=== PATIENT | male | born 1990 | race Two or more races ===

== ENCOUNTER 2019-02-13 20:38 | Emergency (ER) | payer OTHER ==
[~2019-02-13] VITALS: Ht 175.3 cm; Wt 68.0 kg
[2019-02-13] MEDS ORDERED: NKM (20:46)
[2019-02-13 20:49] VITALS: BP 137/82
--- NOTE | 2019-02-13 20:53 | NUR ---
ER Nurse Note: Pt came from home c/o left side inflammation due to abscess in left nare. Inside left nare, small bump with redness and dried blood. Pt stated it was popped by significant other and notied the pain and swelling afterwards. Pt a&ox4, VSS. No difficulty breathing through nose, no shortness of breath, no difficulty swallowing. Will continue to [facility].
[2019-02-13] MEDS ORDERED: Bacitracin Oint UD TOPIC ONE (21:00)
[2019-02-13] MEDS ORDERED: Cephalexin 500mg cap ORAL ONE (21:00)
[2019-02-13] MEDS ORDERED: Bactrim-DS 1 tab ORAL ONE (21:00)
[2019-02-13] MEDS ORDERED: HYDROcodone/Acetamin 5/325 tab ORAL ONE (21:00)
[2019-02-13] MEDS ORDERED: Ketorolac 60mg Inj IM ONE (21:00)
--- NOTE | 2019-02-13 21:04 | Emergency Room Report ---
History of Present Illness General Chief Complaint: Skin Rash/Abscess Source: Patient Present Illness HPI Patient presents with complaints of swelling and irritation to the left upper facial area Reports that several days ago he had noticed some mild erythema just below the nasal area Over the past 2-3 days has worsened and now he feels is more swelling in the left upper cheek Denies any chest pain or shortness of breath he had developed a migraine headache with this he does report that he gets headache in the past Denies any neck pain or photophobia denies any fevers Allergies: Coded Allergies: No Known Allergies (Unverified , 02/13/19) Patient History Past Medical History: see triage record Pertinent Family History: none Reviewed Nursing Documentation: PMH: Agreed; PSxH: Agreed Nursing Documentation-PMH Past Medical History: No Stated History Review of Systems All Other Systems: negative except mentioned in HPI Physical Exam Vital Signs Date Time Temp Pulse Resp B/P (MAP) Pulse Ox O2 Delivery O2 Flow Rate FiO2 02/13/19 20:41 99.9 93 18 137/82 94 Room Air Sp02 EP Interpretation: reviewed, normal General Appearance: well appearing, no apparent distress Head: normocephalic, atraumatic Eyes: bilateral eye PERRL, bilateral eye EOMI Medical Decision Making Diagnostic Impression: Primary Impression: Impetigo Additional Impression: Cellulitis ER Course Given the above history and presentation there appears to be likely area of infection just above the upper lip on the left side just below the nasal Malissa and involving some of the nasal manner There is some fullness involving the left upper facial region as well I cannot palpate any obvious fluctuance After further discussion patient also reports being at the [facility] and having instrumentation with trimming of that area on Thursday Patient will be treated aggressively here in the emergency room with antibiotics And will have continued antibiotics with close outpatient follow-up and strict return to ER visit protocols provided Last Vital Signs Date Time Temp Pulse Resp B/P (MAP) Pulse Ox O2 Delivery O2 Flow Rate FiO2 02/13/19 20:49 99.9 84 18 137/82 94 Room Air Status: improved Disposition: HOME, SELF-CARE Condition: Improved Scripts Acetaminophen With Codeine (T#3) (TYLENOL #3 TAB*) Y Tab 1 TAB ORAL Q8H PRN for For Pain, #10 TAB Prov: Ronal Kelly DO 4/14/19 Ibuprofen* (MOTRIN*) 600 Mg Tablet 600 MG ORAL Q8H PRN for For Pain, #20 TAB 0 Refills Prov: Ronal Kelly DO 02/13/19 Trimethoprim/Sulfamethoxazole 160/800* (BACTRIM DS TABLET*) 1 Each Tablet 1 TAB ORAL Q12H, #20 TAB 0 Refills Prov: Ronal Kelly DO 02/13/19 Cephalexin* (KEFLEX*) 500 Mg Capsule 500 MG ORAL EVERY 6 HOURS for 10 Days, CAP Prov: Ronal Kelly DO 02/13/19 Additional Instructions: Patient is provided with the discharge instructions notified to follow up with primary doctor in the next 2-3 days otherwise return to the er with any worsening symptoms. Please note that this report is being documented using [employer] technology. This can lead to erroneous entry secondary to incorrect interpretation by the dictating instrument. Ronal Kelly DO Feb 13, 2019 21:04
[2019-02-13] MEDS ORDERED: CEPHALEXIN500 MG ORAL (21:10)
[2019-02-13] MEDS ORDERED: IBUPROFEN600 MG ORAL (21:10)
[2019-02-13] MEDS ORDERED: ACETAMINOPHEN-1 EAC1 ORAL (21:10)
[2019-02-13] MEDS ORDERED: BACTRIM DS TAB1 EAC1 ORAL (21:10)
[2019-02-13 21:25] VITALS: BP 137/82
--- NOTE | 2019-02-13 21:25 | NUR ---
ER Nurse Note: Pt seen, treated, medically cleared for discharge by ERMD. Discharge instructions and prescriptions given with repeat verbazliaion by pt. Instructed pt to follow up with primary care provider within one week. Pt a&ox4, VSS, no signs of distress. ID band removed. Pt left with all belongings with steady gait via own transportation.
== END 2019-02-13 21:25 | disposition home or self-care (01) ==
LOC: EMR 21:20
DX: R22.0 Localized swelling, mass and lump, head (principal); R51 Headache
CPT/HCPCS: 96372; 99283